=== PATIENT | male | born 1955 | race Caucasian/White ===

== ENCOUNTER 2025-04-18 13:16 | Day surgery (SDC) | payer MEDICARE, BC ==
[2025-04-18] MEDS ORDERED: Sodium Chloride 0.9(Preservative Free) 10 ML IJ ONE (13:17)
[2025-04-18] MEDS ORDERED: propofoL IV ONE (16:42)
[2025-04-18] MEDS ORDERED: Xylocaine-Mpf 2% 5 Ml Vial ONE (16:44)
[2025-04-18] MEDS ORDERED: MORPHINE SULFATE 4 MG INJ ONE (17:01)
[2025-04-18] MEDS ORDERED: Lactated Ringers 1,000 ML IV ONE (17:22)
--- NOTE | 2025-04-18 20:07 | XRAY ---
Indication: Right L4-S1 transforaminal SANDEE. Intraoperative fluoroscopy provided for 31 seconds. 4 digital spot image submitted for interpretation demonstrates posterior needle tips projecting over expected right L4 and L5 nerve roots. Small amount of contrast injected for needle tip placement. Correlate with intraoperative findings/report. Incidental incompletely visualized aorto bi-iliac stents
--- NOTE | 2025-04-18 20:11 | XRAY ---
31 seconds of fluoroscopy used in surgery for a right L4-S1 transforaminal SANDEE.
== END 2025-04-18 17:25 | disposition home or self-care (01) ==
LOC: SDC-PAIN 13:16
PROVIDERS: ATTEND Psychiatry & Neurology Pain Medicine
DX: M54.16 Radiculopathy, lumbar region (principal)